=== PATIENT | female | born 1975 | race Caucasian/White ===

== ENCOUNTER 2017-01-18 13:52 | Observation (INO) | payer OTHER ==
[~2017-01-18] VITALS: Ht 157.5 cm; Wt 74.5 kg
[2017-01-18 15:49] LABS: BASOPHIL % 0.3 % (0-2); PLATELET COUNT 285 x10^3mcL (130-400); RED CELL DISTRIBUTION WIDTH 13.1 % (11.5-14.5)
[2017-01-18 16:03] LABS: CALCIUM 8.9 mg/dL (8.5-10.1); CHLORIDE SERUM 107 mmol/L (98-107); CREATININE SERUM 0.6 mg/dL (0.6-1.0); GFR1 > 60 mL/min; GLUCOSE SERUM 90 mg/dL (74-106); POTASSIUM SERUM 3.5 mmol/L (3.5-5.1); SODIUM SERUM 144 mmol/L (136-145)
[2017-01-18 16:09] LABS: ALBUMIN 3.7 g/dL (3.4-5.0); ALKALINE PHOSPHATASE 80 U/L (46-116); ALT/SGPT 84 U/L (14-59); AST/SGOT 101 U/L (15-37); BILIRUBIN TOTAL 1.04 mg/dL (0.20-1.00); LIPASE 81 IU/L (73-393); TOTAL PROTEIN, SERUM 7.9 g/dL (6.4-8.2)
[2017-01-18 16:13] LABS: AMYLASE 20 U/L (25-115)
[2017-01-18] MEDS ORDERED: BENTYL10 MG (20:12)
[2017-01-18] MEDS ORDERED: ORACEA40 MG (20:12)
[2017-01-18 21:02] LABS: CHOLESTEROL/HDL RATIO 2.9; PHOSPHOROUS 3.4 mg/dL (2.5-4.9)
[2017-01-18 21:09] LABS: T3 TOTAL 1.29 ng/mL
[2017-01-18 21:13] LABS: FREE T4 1.19 ng/dL (0.76-1.46); T4(THYROXINE) 10.1 ug/dL (4.7-13.3)
[2017-01-18 21:17] VITALS: BP 126/70
[2017-01-18 21:42] VITALS: BP 126/70
[2017-01-19 01:01] LABS: microscopic required? NO
[2017-01-19 01:27] LABS: UA SPECIFIC GRAVITY <=1.005 (1.005-1.035); urine erythrocyte NEGATIVE (NEGATIVE)
[2017-01-19 01:36] LABS: AMPHETAMINE QUAL UR NONE DETECTED (NEG <=1000)
[2017-01-19 05:04] VITALS: BP 97/61
[2017-01-19 10:04] VITALS: BP 105/73
[2017-01-19 14:22] VITALS: BP 110/77
[2017-01-19 17:54] VITALS: BP 117/79
[2017-01-19 20:45] VITALS: BP 112/73
[2017-01-20 09:57] VITALS: BP 111/72
[2017-01-20 13:34] VITALS: BP 114/69
[2017-01-20] MEDS ORDERED: PENTASA500 M1 PO (14:17)
[2017-01-20] MEDS ORDERED: ENTOCORT EC3 MG PO (14:18)
[2017-01-20 14:36] VITALS: BP 114/69
== END 2017-01-20 15:30 | disposition home or self-care (01) | DRG 386 ==
LOC: ED 13:52 → DU 19:56
PROVIDERS: Emergency Medicine; Internal Medicine; ADMIT Family Medicine
PROC: 0DBK8ZX Excision of Ascending Colon, Via Natural or Artificial Opening Endoscopic, Diagnostic (ICD-10-PCS; principal; 2017-01-20 11:00)
PROC: 0DBB8ZX Excision of Ileum, Via Natural or Artificial Opening Endoscopic, Diagnostic (ICD-10-PCS; principal; 2017-01-20 11:00)
DX: K50.90 Crohn's disease, unspecified, without complications (principal); K56.69 Other intestinal obstruction; D12.2 Benign neoplasm of ascending colon; K66.0 Peritoneal adhesions (postprocedural) (postinfection); K76.0 Fatty (change of) liver, not elsewhere classified; R74.0 Nonspecific elevation of levels of transaminase and lactic acid dehydrogenase [LDH]; D24.2 Benign neoplasm of left breast; D24.1 Benign neoplasm of right breast; E66.9 Obesity, unspecified; Z68.30 Body mass index [BMI] 30.0-30.9, adult
CPT/HCPCS: 45378; 83880; 84439; 87046; 87046-59; C9113; G0378; J1200; J1610; J1956; J2060; J2175; J2250; J2270; J2310; J2405; J2930; J3010; J3490; J7030; Q0092; Q9966; Q9967

== ENCOUNTER 2017-02-04 10:55 | Inpatient (IN) | payer OTHER ==
[~2017-02-04] VITALS: Ht 162.6 cm; Wt 72.2 kg
[~2017-02-04 10:55] MED LIST: BENTYL10 MG; ENTOCORT EC3 MG PO; ORACEA40 MG; PENTASA500 M1 PO
[2017-02-04 15:05] LABS: UA SPECIFIC GRAVITY 1.025 (1.005-1.035); microscopic required? YES; urine erythrocyte 3+ (NEGATIVE)
[2017-02-04 15:06] LABS: BASOPHIL % 0.3 % (0-2); PLATELET COUNT 255 x10^3mcL (130-400); RED CELL DISTRIBUTION WIDTH 13.4 % (11.5-14.5)
[2017-02-04 15:10] LABS: CALCIUM 8.8 mg/dL (8.5-10.1); CARBON DIOXIDE 29.8 mmol/L (21-32); CHLORIDE SERUM 103 mmol/L (98-107); CREATININE SERUM 0.7 mg/dL (0.6-1.0); GFR1 > 60 mL/min; GLUCOSE SERUM 99 mg/dL (74-106); POTASSIUM SERUM 3.8 mmol/L (3.5-5.1); SODIUM SERUM 138 mmol/L (136-145)
[2017-02-04 15:14] LABS: ALKALINE PHOSPHATASE 67 U/L (46-116); ALT/SGPT 37 U/L (14-59); AMPHETAMINE QUAL UR NONE DETECTED (NEG <=1000); AST/SGOT 24 U/L (15-37); BILIRUBIN TOTAL 0.9 mg/dL (0.20-1.00); LIPASE 76 IU/L (73-393); TOTAL PROTEIN, SERUM 6.9 g/dL (6.4-8.2)
[2017-02-04 15:15] LABS: ALBUMIN 3.3 g/dL (3.4-5.0); AMYLASE 24 U/L (25-115)
[2017-02-04 17:28] LABS: T3 TOTAL 1.15 ng/mL
[2017-02-04 17:31] LABS: FREE T4 1.24 ng/dL (0.76-1.46); FREE THYROXINE INDEX 3.3 ug/dL (1.4-4.5); T4(THYROXINE) 9.1 ug/dL (4.7-13.3)
[2017-02-04 18:01] VITALS: BP 120/77
[2017-02-04 21:20] VITALS: BP 114/74
[2017-02-05 05:20] VITALS: BP 94/51
[2017-02-05 06:24] LABS: CALCIUM 8.6 mg/dL (8.5-10.1); CARBON DIOXIDE 26.9 mmol/L (21-32); CHLORIDE SERUM 107 mmol/L (98-107); CREATININE SERUM 0.6 mg/dL (0.6-1.0); GFR1 > 60 mL/min; GLUCOSE SERUM 105 mg/dL (74-106); HDL CHOLESTEROL 42 mg/dL (40-60); MAGNESIUM 2.3 mg/dL (1.8-2.4); PHOSPHOROUS 4.2 mg/dL (2.5-4.9); POTASSIUM SERUM 3.7 mmol/L (3.5-5.1); SODIUM SERUM 144 mmol/L (136-145); TRIGLYCERIDES 99 mg/dL (<150)
[2017-02-05 06:31] LABS: CHOLESTEROL 112 mg/dL (<200); CHOLESTEROL/HDL RATIO 2.7
[2017-02-05 06:49] LABS: BASOPHIL % 0.4 % (0-2); PLATELET COUNT 243 x10^3mcL (130-400); RED CELL DISTRIBUTION WIDTH 13.6 % (11.5-14.5)
[2017-02-05 21:17] VITALS: BP 113/69
[2017-02-06 06:15] VITALS: BP 100/55
[2017-02-06 06:22] LABS: BASOPHIL % 0.2 % (0-2); PLATELET COUNT 256 x10^3mcL (130-400); RED CELL DISTRIBUTION WIDTH 13.3 % (11.5-14.5)
[2017-02-06 06:23] LABS: CALCIUM 8.5 mg/dL (8.5-10.1); CHLORIDE SERUM 108 mmol/L (98-107); CREATININE SERUM 0.5 mg/dL (0.6-1.0); GFR1 > 60 mL/min; GLUCOSE SERUM 111 mg/dL (74-106); SODIUM SERUM 143 mmol/L (136-145)
[2017-02-06 10:08] VITALS: BP 104/70
[2017-02-06 17:16] VITALS: BP 124/84
[2017-02-06 20:49] VITALS: BP 99/64
[2017-02-06 21:39] VITALS: BP 122/88
[2017-02-07 05:29] VITALS: BP 97/60
[2017-02-07 07:30] LABS: PLATELET COUNT 273 x10^3mcL (130-400); RED CELL DISTRIBUTION WIDTH 12.2 % (11.5-14.5)
[2017-02-07 07:36] LABS: CALCIUM 8.6 mg/dL (8.5-10.1); CARBON DIOXIDE 26.3 mmol/L (21-32); CHLORIDE SERUM 109 mmol/L (98-107); CREATININE SERUM 0.6 mg/dL (0.6-1.0); GFR1 > 60 mL/min; GLUCOSE SERUM 102 mg/dL (74-106); POTASSIUM SERUM 3.5 mmol/L (3.5-5.1); SODIUM SERUM 145 mmol/L (136-145)
[2017-02-07 09:55] VITALS: BP 116/73
[2017-02-07 14:36] VITALS: BP 113/64
[2017-02-07 17:53] VITALS: BP 107/71
[2017-02-07] MEDS ORDERED: NEO500 PO (17:58)
[2017-02-07] MEDS ORDERED: FLA500 PO (17:58)
[2017-02-07] MEDS ORDERED: PREDNISONE20 MG PO (18:00)
[2017-02-07 18:18] VITALS: BP 107/71
== END 2017-02-07 18:43 | disposition home or self-care (01) | DRG 385 ==
LOC: ED 10:55 → MU 16:27 → DU 16:27 → MU 02-06 06:44
PROVIDERS: Emergency Medicine; Family Medicine; ADMIT Family Medicine
DX: K50.00 Crohn's disease of small intestine without complications (principal); N17.0 Acute kidney failure with tubular necrosis; E44.1 Mild protein-calorie malnutrition; E87.8 Other disorders of electrolyte and fluid balance, not elsewhere classified; E66.9 Obesity, unspecified; Z68.27 Body mass index [BMI] 27.0-27.9, adult
CPT/HCPCS: 83880; 84439; 86480; J1720; J1885; J2270; J2405; J3490; J7030; Q0092; Q9967